=== PATIENT | male | born 1985 | race Caucasian/White ===

== ENCOUNTER 2025-03-20 16:38 | Inpatient (IN) | payer OTHER ==
[~2025-03-20] VITALS: Ht 172.7 cm; Wt 84.6 kg
[2025-03-20 17:48] LABS: PLATELET COUNT (AUTO) 229 K/uL (150-450); RED BLOOD CELL COUNT(AUTO) 4.19 MIL/uL (4.50-5.90); RED CELL DISTRIBUTION WIDTH 13.2 % (11.5-14.5); WHITE BLOOD COUNT (AUTO) 6.7 K/uL (4.5-11.0)
[2025-03-20 17:53] LABS: CALCIUM, TOTAL 8.5 mg/dL (8.8-10.5); CREATININE 0.79 mg/dL (0.60-1.30); GLOMERULAR FILTR. RATE CALC > 60 mL/min (>60); GLUCOSE,RANDOM 129 mg/dL (70-110); SODIUM SERUM 137 mmol/L (136-145); UREA NITROGEN, BLOOD 22 mg/dL (7-18)
[2025-03-20] MEDS ORDERED: OxyCODONE HCL/ACETAMINOPHEN 5-325 MG TABLET PO PRN (18:30)
[2025-03-20] MEDS: VANCOMYCIN 1GM/WATER(PEG/NADA) 200 ML IV ONE (18:30)
[2025-03-20] MEDS ORDERED: ZOLPIDEM TARTRATE 5 MG TABLET PO PRN (18:30)
[2025-03-20] MEDS ORDERED: MAGNESIUM HYDROXIDE SUSPENSION 30 ML UDCUP PO PRN (18:30)
[2025-03-20] MEDS: CefTRIAXone 1 GM/DEXTROSE 50 ML IV SCH (18:55)
[2025-03-20 20:43] VITALS: BP 116/75; PULSE 59; RESP 18; TEMP 98.9; O2SAT 98
[2025-03-20] MEDS: DOCUSATE SODIUM 100 MG CAPSULE PO SCH (21:00)
[2025-03-20] MEDS ORDERED: SODIUM CHLORIDE 0.9% 500 ML IV ONE (23:46)
[2025-03-21] MEDS: HEPARIN SODIUM,PORCINE 5,000 UNITS/ML VIAL SQ SCH
[2025-03-21] MEDS: VANCOMYCIN 1GM/WATER(PEG/NADA) 200 ML IV SCH (00:01)
[2025-03-21 05:58] VITALS: BP 110/63; PULSE 56; RESP 18; TEMP 98.1; O2SAT 100
[2025-03-21 07:10] LABS: CALCIUM, TOTAL 8.9 mg/dL (8.8-10.5); CREATININE 0.99 mg/dL (0.60-1.30); GLOMERULAR FILTR. RATE CALC > 60 mL/min (>60); GLUCOSE,RANDOM 103 mg/dL (70-110); SODIUM SERUM 139 mmol/L (136-145); UREA NITROGEN, BLOOD 17 mg/dL (7-18)
[2025-03-21 07:55] VITALS: BP 123/77; PULSE 57; RESP 18; TEMP 97.9; O2SAT 98
[2025-03-21] MEDS: FAMOTIDINE 20 MG TABLET PO SCH (08:09)
[2025-03-21] MEDS: ACETAMINOPHEN 325 MG TABLET PO PRN (18:05)
[2025-03-21 19:59] VITALS: BP 125/77; PULSE 66; RESP 18; TEMP 98.2; O2SAT 96
[2025-03-22 04:00] VITALS: BP 110/74; PULSE 52; RESP 16; TEMP 97.7; O2SAT 97
[2025-03-22 05:12] LABS: CALCIUM, TOTAL 8.8 mg/dL (8.8-10.5); CREATININE 0.93 mg/dL (0.60-1.30); GLOMERULAR FILTR. RATE CALC > 60 mL/min (>60); GLUCOSE,RANDOM 107 mg/dL (70-110); SODIUM SERUM 138 mmol/L (136-145); UREA NITROGEN, BLOOD 18 mg/dL (7-18)
[2025-03-22 08:08] VITALS: BP 129/69; PULSE 63; RESP 18; TEMP 98.6; O2SAT 99
[2025-03-22] MEDS ORDERED: SULF-261 PO (16:01)
[2025-03-22] MEDS ORDERED: ACET-2247 PO (16:07)
[2025-03-22] MEDS ORDERED: MAGN-169 PO (16:08)
[2025-03-22 19:14] VITALS: BP 129/71; PULSE 60; RESP 18; TEMP 98.4; O2SAT 96
[2025-03-22] MEDS: SULFAMETHOX/TRIMETH DS 800-160 MG/TABLET PO SCH (20:07)
[2025-03-23 03:54] VITALS: BP 123/71; PULSE 56; RESP 17; TEMP 97.3; O2SAT 97
[2025-03-23 08:00] VITALS: BP 130/78; PULSE 56; RESP 20; TEMP 97.7; O2SAT 97
[2025-03-23 16:03] VITALS: BP 118/63; PULSE 63; RESP 16; TEMP 97.9; O2SAT 99
== END 2025-03-23 19:11 | DRG 603 ==
LOC: EMS 16:38 → EDH 18:27 → 6N 20:16
PROVIDERS: ADMIT Internal Medicine; ATTEND Internal Medicine
DX: L03.116 Cellulitis of left lower limb (principal); Z79.899 Other long term (current) drug therapy
CPT/HCPCS: 80048; 80202; 85025; 85651; 86140; 87040; 93971; 96365; 99285; J0696; J1644; J7040